=== PATIENT | female | born 1965 | race Caucasian/White ===

== ENCOUNTER → 2021-10-15 | Outpatient (CLI) | payer OTHER | LOC: KOH-I 16:29 | DX: R20.0 Anesthesia of skin (principal); G95.9 Disease of spinal cord, unspecified; G35 Multiple sclerosis; M54.2 Cervicalgia; R93.0 Abnormal findings on diagnostic imaging of skull and head, not elsewhere classified; M47.816 Spondylosis without myelopathy or radiculopathy, lumbar region | CPT/HCPCS: 72100 ==

== ENCOUNTER → 2021-11-05 | Outpatient (CLI) | payer OTHER | LOC: EMI 08:33 | DX: G35 Multiple sclerosis (principal); G95.9 Disease of spinal cord, unspecified; M54.2 Cervicalgia; R90.82 White matter disease, unspecified; R20.0 Anesthesia of skin; E07.9 Disorder of thyroid, unspecified | CPT/HCPCS: 70553; 72156; A9577 ==

== ENCOUNTER → 2021-11-11 | Outpatient (CLI) | payer OTHER ==
[2021-11-11 10:55] LABS: GLUCOSE,CSF 56 mg/dL (50-80); TOTAL PROTEIN,CSF 51 mg/dL (20-45)
[2021-11-11 11:29] LABS: WBC (AUTOMATED 1 10^3 (0-5)
[2021-11-11 11:30] LABS: RBC (AUTOMATED) 100 10^6 (0); WBC (AUTOMATED 3 10^3 (0-5)
[2021-11-13 18:11] LABS: MYELIN BASIC PROTEIN, CSF 5.5 ng/mL (0.0-3.7)
== END | disposition home or self-care (01) ==
LOC: RAD 08:30
PROVIDERS: Psychiatry & Neurology Neurology
DX: G35 Multiple sclerosis (principal); G95.9 Disease of spinal cord, unspecified; R20.0 Anesthesia of skin; M54.2 Cervicalgia; R90.82 White matter disease, unspecified
CPT/HCPCS: 82040; 82784; 82945; 83873; 83916; 84157; 87070; 87205; 87210; 89051

== ENCOUNTER 2021-11-14 17:58 | Emergency (ER) | payer OTHER ==
[2021-11-14 18:45] LABS: HEMOGLOBIN 14.8 gm/dl (12.3-15.3); RED BLOOD COUNT 4.47 M/UL (4.00-5.10); WHITE BLOOD COUNT 7.5 K/UL (4.5-11.0)
[2021-11-14 19:11] LABS: BUN/CREATININE RATIO 12 (0-10)
[2021-11-14] MEDS ORDERED: PERCOCET 5/325 T1 EA PO (21:55)
== END 2021-11-14 22:13 | disposition home or self-care (01) ==
LOC: ER1 17:58
PROVIDERS: Physician Assistant Medical
DX: R51.9 Headache, unspecified (principal); R07.9 Chest pain, unspecified; F17.210 Nicotine dependence, cigarettes, uncomplicated
CPT/HCPCS: 70450; 71045; 80053; 82550; 82553; 84484; 85025; 85652; 86140; 93005; 99285; J7030

== ENCOUNTER 2021-11-15 13:33 | Emergency (ER) | payer OTHER ==
[~2021-11-15 13:33] MED LIST: PERCOCET 5/325 T1 EA PO
== END 2021-11-15 16:00 | disposition home or self-care (01) ==
LOC: ER1 13:33
DX: G97.1 Other reaction to spinal and lumbar puncture (principal); F17.200 Nicotine dependence, unspecified, uncomplicated
CPT/HCPCS: 62273; 99283